=== PATIENT | female | born 1975 | race Caucasian/White ===

== ENCOUNTER 2016-10-19 14:16 | Emergency (ER) | payer OTHER ==
[~2016-10-19] VITALS: Ht 172.7 cm; Wt 72.6 kg
[~2016-10-19 14:16] MED LIST: HYDR-971 PO; LEVO500T8 PO; METR500T PO; ONDA4TAB10 PO; ONDA4TAB10 SL; OXYC5CAP3 PO
[2016-10-19 14:24] VITALS: BP 153/94
[2016-10-19] MEDS ORDERED: HYDR-971 PO (14:30)
[2016-10-19] MEDS ORDERED: DEXAMETHASONE SOD PHOS 10 MG/ML VIAL IM ONE (15:00)
--- NOTE | 2016-10-19 16:07 | ED.ADGEN ---
Past History Past Medical History: No Pertinent History Past Surgical History: Appendectomy, Other Alcohol Use: Rarely Drug Use: None Adult General HPI HPI Patient is a 41-year-old female presents to the emergency department complaining of left neck pain. Patient is in the process of moving several households and reports that she started developing or neck pain over the last 2 days. She thinks she may have slept on it awkwardly. Patient has pain primarily with turning to the left. She denies any other specific trauma to the area. Denies any focal neuro findings or radiculopathy. Review of Systems Review of Systems Constitutional: Denies fever or chills [] Eyes: Denies change in visual acuity, redness, or eye pain [] HENT: Denies nasal congestion or sore throat [] Respiratory: Denies cough or shortness of breath [] Cardiovascular: No additional information not addressed in HPI [] GI: Denies abdominal pain, nausea, vomiting, bloody stools or diarrhea [] : Denies dysuria or hematuria [] Musculoskeletal: Denies back pain or joint pain [] Integument: Denies rash or skin lesions [] Neurologic: Denies headache, focal weakness or sensory changes [] Endocrine: Denies polyuria or polydipsia [] Current Medications Current Medications Current Medications Medications (Trade) Dose Ordered Sig/Anshul Start Time Stop Time Status Last Admin Dose Admin Dexamethasone Sodium Phosphate (Decadron) 10 mg 1X ONCE 10/19/16 15:00 10/19/16 15:00 DC 10/19/16 14:45 10 MG Allergies Allergies Allergies Coded Allergies Type Severity Reaction Last Updated Verified Sulfa (Sulfonamide Antibiotics) Allergy Intermediate hives 05/01/16 Yes ketorolac Allergy Intermediate throat swells 05/01/16 Yes Physical Exam Physical Exam Constitutional: Well developed, well nourished, no acute distress, non-toxic appearance. [] HENT: Normocephalic, atraumatic, bilateral external ears normal, oropharynx moist, no oral exudates, nose normal. [] Eyes: PERRLA, EOMI, conjunctiva normal, no discharge. [] Neck: Normal range of motion, left trapezius and sternocleidomastoid are both tender to palpation with palpable spasm, no stridor. [] Cardiovascular:Heart rate regular rhythm, no murmur [] Lungs & Thorax: Bilateral breath sounds clear to auscultation [] Abdomen: Bowel sounds normal, soft, no tenderness, no masses, no pulsatile masses. [] Skin: Warm, dry, no erythema, no rash. [] Extremities: No tenderness, no cyanosis, no clubbing, ROM intact, no edema. [] Neurologic: Alert and oriented X 3, normal motor function, normal sensory function, no focal deficits noted. [] Psychologic: Affect normal, judgement normal, mood normal. [] Current Patient Data Vital Signs Vital Signs Date Time Temp Pulse Resp B/P Pulse Ox O2 Delivery O2 Flow Rate FiO2 10/19/16 14:24 97.8 95 20 99 Room Air EKG EKG [] Radiology/Procedures Radiology/Procedures [] Course & Med Decision Making Course & Med Decision Making Pertinent Labs and Imaging studies reviewed. (See chart for details) Unfortunately, the patient's unable to take Toradol. We did give her dose of Decadron here in emergency department and discharge her with a prescription for naproxen. She will follow-up with her doctor as needed return emergency department sooner she develops new or worsening symptoms. [] Final Impression Final Impression Torticollis [] Problems: Dragon Disclaimer Dragon Disclaimer This electronic medical record was generated, in whole or in part, using a voice recognition dictation system. JUNAID VALLES MD Oct 19, 2016 16:07
== END 2016-10-19 14:46 | disposition home or self-care (01) ==
LOC: ER 14:16
DX: M43.6 Torticollis (principal); Z88.2 Allergy status to sulfonamides; Z88.8 Allergy status to other drugs, medicaments and biological substances; X58.XXXA Exposure to other specified factors, initial encounter; Y93.89 Activity, other specified; Y99.8 Other external cause status; Y92.89 Other specified places as the place of occurrence of the external cause
CPT/HCPCS: 96372; 99283; J1100

== ENCOUNTER 2016-11-17 20:22 | Emergency (ER) | payer OTHER ==
[~2016-11-17 20:22] MED LIST changes: +OXYC5CAP PO; -OXYC5CAP3 PO
[2016-11-17 20:40] VITALS: BP 148/89
--- NOTE | 2016-11-17 20:50 | PHYS DOC ---
Past History Past Medical History: No Pertinent History Additional Past Medical Histor: chronic right hip pain Past Surgical History: Appendectomy, Cholecystectomy, Hysterectomy, Other Additional Past Surgical Histo: Bowel resection, knee surgery-Right Smoking: Cigarettes Alcohol Use: Rarely Drug Use: None Adult General Chief Complaint Chief Complaint: COUGH HPI HPI Patient is a 41 year old female who presents with sneezing and congestion for at least 4 days. It started with sneezing and then sinus congestion. No fevers. She has a dry nonproductive cough. Her ears are full as well. Review of Systems Review of Systems Constitutional: Denies fever or chills Eyes: Denies change in visual acuity, redness, or eye pain. Lateral eye puffiness. HENT: nasal congestion noted or sore throat Respiratory: Nonproductive cough but no shortness of breath, wheezing Cardiovascular: No additional information not addressed in HPI . No chest pain GI: Denies abdominal pain, nausea, vomiting, bloody stools or diarrhea : Denies dysuria or hematuria Musculoskeletal: Chronic right hip and right knee pain. Integument: Denies rash or skin lesions Neurologic: Denies headache, focal weakness or sensory changes Endocrine: Denies polyuria or polydipsia Allergies Allergies Allergies Coded Allergies Type Severity Reaction Last Updated Verified Sulfa (Sulfonamide Antibiotics) Allergy Intermediate hives 05/01/16 Yes ketorolac Allergy Intermediate throat swells 05/01/16 Yes Physical Exam Physical Exam Constitutional: Well developed, well nourished, no acute distress, non-toxic appearance. HENT: Normocephalic, atraumatic, bilateral external ears normal, TMs are dull bilaterally. Oropharynx moist, no oral exudates, nose normal. Eyes: PERRLA, EOMI, conjunctiva normal bilateral, no discharge. Mild periorbital edema but no erythema. Neck: Normal range of motion, no tenderness, supple, no stridor. Cardiovascular:Heart rate regular rhythm, no murmur Lungs & Thorax: Bilateral breath sounds clear to auscultation, no wheezing Abdomen: Bowel sounds normal, soft, no tenderness, no masses, no pulsatile masses. Skin: Warm, dry, no erythema, no rash. Back: No tenderness, no CVA tenderness. [] Extremities: No tenderness, no cyanosis, no clubbing, ROM intact, no edema. Neurologic: Alert and oriented X 3, normal motor function, normal sensory function, no focal deficits noted. Gait normal Psychologic: Affect normal, judgement normal, mood normal. Current Patient Data Vital Signs Vital Signs Date Time Temp Pulse Resp B/P (MAP) Pulse Ox O2 Delivery O2 Flow Rate FiO2 11/17/16 20:40 98.8 104 20 96 Room Air Inital BP: 148/89, Course & Med Decision Making Course & Med Decision Making Patient's physical exam is consistent with a allergic rhinitis and sinusitis. Does not have any evidence of a bacterial infection. Do not believe antibiotics are necessary at this time. Did give her a IM Decadron which will also help her hip pain. Placed on a Medrol Dosepak and she is to take Claritin daily. Dragon Disclaimer Dragon Disclaimer This chart was dictated in whole or in part using Voice Recognition software in a busy, high-work load, and often noisy Emergency Department environment. It may contain unintended and wholly unrecognized errors or omissions. Departure Departure: Referrals: JAZMÍN RANDOLPH (PCP) Scripts Methylprednisolone (MEDROL) 4 Mg Tab.ds.pk 1 PKG PO UD, #1 PKG Prov: JAYY NORIEGA MD 11/17/16 JAYY NORIEGA MD November 17, 2016 20:50
[2016-11-17] MEDS ORDERED: METH4TAB2 PO (21:26)
[2016-11-17] MEDS ORDERED: DEXAMETHASONE SOD PHOS 10 MG/ML VIAL IM ONE (21:30)
== END 2016-11-17 21:50 | disposition home or self-care (01) ==
LOC: ER 20:27
DX: J30.9 Allergic rhinitis, unspecified (principal); J32.9 Chronic sinusitis, unspecified; G89.29 Other chronic pain; F17.210 Nicotine dependence, cigarettes, uncomplicated; Z88.2 Allergy status to sulfonamides; Z88.8 Allergy status to other drugs, medicaments and biological substances
CPT/HCPCS: 96372; 99283; J1100

== ENCOUNTER 2016-12-07 15:22 | Emergency (ER) | payer OTHER ==
[~2016-12-07] VITALS: Ht 172.7 cm; Wt 70.3 kg
[~2016-12-07 15:22] MED LIST changes: +METH4TAB2 PO
[2016-12-07 15:35] VITALS: BP 133/67
[2016-12-07] MEDS ORDERED: diazePAM 5 MG TABLET PO ONE (16:10)
--- NOTE | 2016-12-07 16:25 | RAD ---
Indication: Fall and right knee pain. Time of exam 1613 hours. Multiple views of the right knee demonstrate postop changes of total knee arthroplasty. The prosthetic elements appear to be in good position. No fracture or loosening is seen. No effusion is identified. Impression: No acute abnormality is detected.
[2016-12-07] MEDS ORDERED: CYCL-331 PO (16:57)
--- NOTE | 2016-12-07 19:47 | ED.ADGEN ---
Past History Past Medical History: No Pertinent History Additional Past Medical Histor: chronic right hip pain Past Surgical History: Appendectomy, Cholecystectomy, Hysterectomy, Knee Replacement Additional Past Surgical Histo: Bowel resection, knee surgery-Right Smoking: Cigarettes Alcohol Use: Occasionally Drug Use: None Adult General HPI HPI Patient is a 41-year-old woman, who presents to the emergency department with a complaint of right knee pain. Patient is status post a total knee arthroplasty several years ago. She states that when she was stepping out of the shower today , stepped onto an uneven surface, and fell forward striking her knee against the wall. She denies falling down to the ground, striking her head or any other locations of pain or injury. She states that she is supposed to use a cane with ambulation all times but she only does so intermittently. She states that she took ibuprofen prior to coming to the ED, but is experiencing pain primarily on the lateral aspect of her knee, is concerned she may have done damage to her hardware. Patient ambulating using cane upon arousing the emergency department. Review of Systems Review of Systems Constitutional: Denies fever or chills [] Eyes: Denies change in visual acuity, redness, or eye pain [] HENT: Denies nasal congestion or sore throat [] Respiratory: Denies cough or shortness of breath [] Cardiovascular: No additional information not addressed in HPI [] GI: Denies abdominal pain, nausea, vomiting, bloody stools or diarrhea [] : Denies dysuria or hematuria [] Musculoskeletal: Denies back pain, right knee pain. Integument: Denies rash or skin lesions [] Neurologic: Denies headache, focal weakness or sensory changes [] Endocrine: Denies polyuria or polydipsia [] Current Medications Current Medications Current Medications Medications (Trade) Dose Ordered Sig/Anshul Start Time Stop Time Status Last Admin Dose Admin Diazepam (Valium) 5 mg 1X ONCE 12/07/16 16:10 12/07/16 16:11 DC 12/07/16 16:15 5 MG Allergies Allergies Allergies Coded Allergies Type Severity Reaction Last Updated Verified Sulfa (Sulfonamide Antibiotics) Allergy Intermediate hives 05/01/16 Yes ketorolac Allergy Intermediate throat swells 05/01/16 Yes Physical Exam Physical Exam Constitutional: Well developed, well nourished, no acute distress, non-toxic appearance. [] HENT: Normocephalic, atraumatic, bilateral external ears normal, oropharynx moist, no oral exudates, nose normal. [] Eyes: PERRLA, EOMI, conjunctiva normal, no discharge. [] Neck: Normal range of motion, no tenderness, supple, no stridor. [] Cardiovascular:Heart rate regular rhythm, no murmur , S1, S2, no rubs or gallops. [] Lungs & Thorax: Bilateral breath sounds clear to auscultation, no wheezing, rhonchi, rales. No chest wall crepitus or tenderness. [] Abdomen: Bowel sounds normal, soft, no rebound, rigidity, no guarding, no tenderness, no masses, no pulsatile masses. [] Skin: Warm, dry, no erythema, no rash. [] Back: No tenderness, no CVA tenderness. [] Extremities: Patient with well-healed surgical incision noted over the right knee, complaining of tenderness the patient in the lateral aspect of the knee, but no bony point tenderness or crepitus identified, no effusions, no external signs of trauma, no tenderness in the patella fossa., no cyanosis, no clubbing, ROM intact, no edema. [] Neurologic: Alert and oriented X 3, normal motor function, normal sensory function, no focal deficits noted. [] Psychologic: Affect normal, judgement normal, mood normal. [] Current Patient Data Vital Signs Vital Signs Date Time Temp Pulse Resp B/P (MAP) Pulse Ox O2 Delivery O2 Flow Rate FiO2 12/07/16 15:35 98.3 125 16 97 Room Air EKG EKG Not indicated. [] Radiology/Procedures Radiology/Procedures [][address] [address] IMAGING REPORT Signed PATIENT: ALIYAH PEDRAZA ACCOUNT: [id number] : 1975 LOCATION: ER AGE: 41 SEX: F EXAM STATUS: REG ER ORD. PHYSICIAN: SHELBY MARIN DO REASON: fall/pain PROCEDURE: KNEE RIGHT 4V Indication: Fall and right knee pain. Time of exam 1613 hours. Multiple views of the right knee demonstrate postop changes of total knee arthroplasty. The prosthetic elements appear to be in good position. No fracture or loosening is seen. No effusion is identified. Impression: No acute abnormality is detected. DICTATED AND SIGNED BY: ZACH BETANCOURT MD DATE: 12/07/16 1421 CC: JAZMÍN RANDOLPH; SHELBY MARIN DO ~ Course & Med Decision Making Course & Med Decision Making Pertinent Labs and Imaging studies reviewed. (See chart for details) Patient received Valium for muscle spasm, as patient has are eating anything for medication prior to come to the ED. X-ray of the knee was obtained, including sunrise views. Hardware is in place, with no evidence of loosening or acute injury. No effusion identified. I did discuss these findings with patient , who states that she is still experiencing some pain and soreness in the lateral aspect of her knee. However she is ambulating with her pain without difficulty. Discussed continuing to use [id number] medications and Flexeril for discomfort, and following up with orthopedics for additional evaluation if symptoms persist over the next several days. We also discussed concerning symptoms that would prompt return to the emergency department. Patient voiced understanding and agreement with plan as stated. Discharged home with prescriptions, instructions, precautions and plan as stated. Final Impression Final Impression [] Problems: Dragon Disclaimer Dragon Disclaimer This electronic medical record was generated, in whole or in part, using a voice recognition dictation system. Departure: Impression: Primary Impression: Right knee pain Disposition: 01 HOME, SELF-CARE Condition: IMPROVED Scripts Cyclobenzaprine Hcl (CYCLOBENZAPRINE HCL) 10 Mg Tablet 10 MG PO PRN TID Y for MUSCLE PAIN, #12 TAB Prov: SHELBY MARIN DO 12/07/16 SHELBY MARIN DO Dec 07, 2016 19:47
== END 2016-12-07 17:05 | disposition home or self-care (01) ==
LOC: ER 15:22
DX: M25.561 Pain in right knee (principal); G89.29 Other chronic pain; F17.210 Nicotine dependence, cigarettes, uncomplicated; Z96.651 Presence of right artificial knee joint; Z88.2 Allergy status to sulfonamides; Z88.8 Allergy status to other drugs, medicaments and biological substances; W18.09XA Striking against other object with subsequent fall, initial encounter; Y93.89 Activity, other specified; Y99.8 Other external cause status; Y92.89 Other specified places as the place of occurrence of the external cause
CPT/HCPCS: 73564; 99284

== ENCOUNTER 2017-01-15 14:23 | Emergency (ER) | payer OTHER ==
[~2017-01-15] VITALS: Ht 172.7 cm; Wt 70.3 kg
[~2017-01-15 14:23] MED LIST changes: +CYCL-331 PO
[2017-01-15] MEDS ORDERED: DEXAMETHASONE 4 MG TABLET ONE (15:09)
[2017-01-15] MEDS ORDERED: DEXAMETHASONE 4 MG TABLET PO ONE (15:15)
[2017-01-15] MEDS ORDERED: oxyCODONE/APAP 5/325 1 TAB TABLET PO ONE (15:30)
[2017-01-15] MEDS ORDERED: DEXAMETHASONE SOD PHOS 10 MG/ML VIAL IV ONE (15:30)
--- NOTE | 2017-01-15 15:52 | PHYS DOC ---
Past History Past Medical History: Diverticulitis Additional Past Medical Histor: chronic right hip pain Past Surgical History: Appendectomy, Cholecystectomy, Hysterectomy, Knee Replacement, Other Additional Past Surgical Histo: Bowel resection, knee surgery-Right Smoking: Cigarettes Alcohol Use: Occasionally Drug Use: None Adult General Chief Complaint Chief Complaint: HIP PAIN HPI HPI Patient is a 41 year old female who presents with complaint of right hip and knee pain. Patient states that she has a history of chronic hip and knee pain after having knee surgery many years ago which caused a disturbance in her gait. Patient states that her surgeries were completed in the [facility]. The patient was recently stationed in the [facility] with her family and currently resides at [facility]. The patient states that she gets flareups of her pain after increased exertion and states that this is what led to her current flareup. Patient states that her pain is severe and causing significant difficulty with ambulation. The patient has taken Tylenol at home with no relief. Patient states that she has been treated with Lyrica by her primary doctor but states that this did not work for her symptoms. Patient rates her pain currently 6 out of 10. Patient states that the pain travels from her right hip down towards her right knee. Worsens with movement. Does not improve with rest. Review of Systems Review of Systems Constitutional: Denies fever or chills [] HENT: Denies nasal congestion or sore throat [] Musculoskeletal: Right hip and knee pain [] Integument: Denies rash or skin lesions [] Neurologic: Denies headache, focal weakness or sensory changes [] Current Medications Current Medications Current Medications Medications (Trade) Dose Ordered Sig/Anshul Start Time Stop Time Status Last Admin Dose Admin Dexamethasone (Decadron) 4 mg STK-MED ONCE 01/15/17 15:09 01/15/17 15:10 DC Dexamethasone Sodium Phosphate (Decadron) 16 mg 1X ONCE 01/15/17 15:30 01/15/17 15:30 DC Oxycodone/ Acetaminophen (Percocet 5/325) 2 tab 1X ONCE 01/15/17 15:30 01/15/17 15:31 DC 01/15/17 15:13 2 TAB Allergies Allergies Allergies Coded Allergies Type Severity Reaction Last Updated Verified Sulfa (Sulfonamide Antibiotics) Allergy Intermediate hives 05/01/16 Yes ketorolac Allergy Intermediate throat swells 05/01/16 Yes Physical Exam Physical Exam Constitutional: Alert, afebrile, appears in moderate discomfort. [] HENT: Normocephalic, atraumatic, bilateral external ears normal, oropharynx moist, no oral exudates, nose normal. [] Skin: Warm, dry, no erythema, no rash. [] Back: No tenderness, no CVA tenderness. [] Extremities: Tenderness palpation over right greater trochanter, pain with passive range of motion along lateral aspect of right thigh, pulses 2+ distal to site of pain. [] Neurologic: Alert and oriented X 3, normal motor function, normal sensory function, no focal deficits noted. [] Current Patient Data Vital Signs Vital Signs Date Time Temp Pulse Resp B/P (MAP) Pulse Ox O2 Delivery O2 Flow Rate FiO2 01/15/17 15:13 18 99 01/15/17 14:23 98.2 102 Room Air Lab Results None performed EKG EKG Not performed [] Radiology/Procedures Radiology/Procedures Not performed [] Course & Med Decision Making Course & Med Decision Making Pertinent Labs and Imaging studies reviewed. (See chart for details) Patient was given Percocet and Decadron in the emergency department. On reevaluation, patient's pain has improved this time. Patient has had previous visits and has had prescriptions written from the emergency department for controlled narcotic medication. I did explain to the patient that further narcotic medications would need to be written by a single provider who could continue to follow with her as outpatient. I did recommend and provide referral to patient to see Dr. Doug Dixon at the pain management clinic at [facility]. Advised patient to call and schedule an appointment in the next 1-2 weeks. Recommended follow-up in 2-3 days with patient's primary doctor for reevaluation and return to emergency department for any worsening symptoms. Patient voiced understanding and in agreement with treatment plan. Dragon Disclaimer Dragon Disclaimer This chart was dictated in whole or in part using Voice Recognition software in a busy, high-work load, and often noisy Emergency Department environment. It may contain unintended and wholly unrecognized errors or omissions. Departure Departure: Impression: Primary Impression: Chronic right hip pain Additional Impression: Right knee pain Disposition: 01 HOME, SELF-CARE Condition: IMPROVED Referrals: JAZMÍN RANDOLPH (PCP) Patient Instructions: Chronic Pain Additional Instructions: Call the office of Dr. Doug Dixon, paint laboratory technician, for follow-up in the next 5-7 days. His office phone number is in his office address is as follows: [id number], [place] [place] [address] Follow-up with your primary doctor in the next 2-3 days for reevaluation. Return to the emergency department for any worsening symptoms. Problem Qualifiers Additional Impression: Right knee pain Chronicity: chronic Qualified Codes: M25.561 - Pain in right knee; G89.29 - Other chronic pain BETSY CASH MD Jan 15, 2017 15:52
[2017-01-15 15:55] VITALS: BP 123/80
== END 2017-01-15 15:55 | disposition home or self-care (01) ==
LOC: ER 14:23
DX: G89.29 Other chronic pain (principal); M25.551 Pain in right hip; M25.561 Pain in right knee; F17.210 Nicotine dependence, cigarettes, uncomplicated; Z96.651 Presence of right artificial knee joint; Z88.2 Allergy status to sulfonamides; Z88.8 Allergy status to other drugs, medicaments and biological substances
CPT/HCPCS: 99283; J8540

== ENCOUNTER 2019-01-25 12:54 | Emergency (ER) | payer OTHER ==
[~2019-01-25] VITALS: Ht 172.7 cm; Wt 58.1 kg
[~2019-01-25 12:54] MED LIST changes: +HYDR-3165 PO; -HYDR-971 PO
--- NOTE | 2019-01-25 13:18 | PHYS DOC ---
Past History Past Medical History: Diverticulitis Additional Past Medical Histor: chronic right hip pain Past Surgical History: Appendectomy, Cholecystectomy, Hysterectomy, Knee Replacement Additional Past Surgical Histo: Bowel resection, knee surgery-Right Smoking: Cigarettes Additional Smoking Information: 07/07- ppd Alcohol Use: Occasionally Drug Use: None Adult General Chief Complaint Chief Complaint: FOOT INJURY PAIN HPI HPI Patient is a 43-year-old female presents complaining of left fourth toe pain. Patient was doing some moving of a car, her foot slipped off the parking brake and the brake pedal came up words injuring her toe. There was no crush mechanism injury. Increased pain with movement and ambulation. This happened yesterday. No relief with her narcotic pain medicine that she has for chronic pain condition and is under contract with [facility]. She also took ibuprofen without any significant improvement. Pain is mild when resting, moderate to severe when standing. She notes swelling to the area.[] Review of Systems Review of Systems Constitutional: Denies fever or chills [] Eyes: Denies change in visual acuity, redness, or eye pain [] HENT: Denies nasal congestion or sore throat [] Respiratory: Denies cough or shortness of breath [] Cardiovascular: No chest pain or palpitations[] GI: Denies abdominal pain, nausea, vomiting, bloody stools or diarrhea [] : Denies dysuria or hematuria [] Musculoskeletal: Denies back pain, see history of present illness[] Integument: Denies rash or skin lesions [] Neurologic: Denies headache, focal weakness or sensory changes [] Endocrine: Denies polyuria or polydipsia [] All other systems were reviewed and found to be within normal limits, except as documented in this note. Allergies Allergies Allergies Coded Allergies Type Severity Reaction Last Updated Verified Sulfa (Sulfonamide Antibiotics) Allergy Intermediate hives 01/25/19 Yes ketorolac Allergy Intermediate throat swells 01/25/19 Yes Physical Exam Physical Exam Constitutional: Well developed, well nourished, no acute distress, non-toxic appearance. [] HENT: Normocephalic, atraumatic, bilateral external ears normal, oropharynx moist, no oral exudates, nose normal. [] Eyes: PERRLA, EOMI, conjunctiva normal, no discharge. [] Neck: Normal range of motion, no tenderness, supple, no stridor. [] Cardiovascular:Heart rate regular rhythm, no murmur [] Lungs & Thorax: Bilateral breath sounds clear to auscultation [] Abdomen: Not examined. [] Skin: Warm, dry, no erythema, no rash. [] Back: No tenderness, no CVA tenderness. [] Extremities: Left foot: Tenderness at the metatarsal phalangeal joint of the fourth toe. Full active range of motion. No significant swelling is appreciated. No bruising. She is distal neurologically intact. Full active range of motion. Capillary refill less than 2 seconds. A joint above and below were evaluated and were normal. The other 3 extremities show: No tenderness, no cyanosis, no clubbing, ROM intact, no edema. [] Neurologic: Alert and oriented X 3, normal motor function, normal sensory function, no focal deficits noted. [] Psychologic: Affect normal, judgement normal, mood normal. [] Current Patient Data Vital Signs Vital Signs Date Time Temp Pulse Resp B/P (MAP) Pulse Ox O2 Delivery O2 Flow Rate FiO2 01/25/19 12:58 96.8 81 18 100 Room Air EKG EKG [] Radiology/Procedures Radiology/Procedures X-ray of the left fourth toe shows no evidence of a fracture, no dislocation, no periosteal elevation, no lytic lesions noted[] Course & Med Decision Making Course & Med Decision Making Pertinent Labs and Imaging studies reviewed. (See chart for details) ED course: Patient arrived, was placed in bed, and tolerated exam well. She was transported to and from radiology with any complications. She was given acetaminophen to assist with pain management. A postoperative shoe was placed for additional comfort after the return of the imaging studies. She was distally neurovascularly intact after the administration of the postoperative shoe. She was discharged in improved condition after discussing the findings. All questions were answered. [place]o decision making: There is no evidence of a fracture or dislocation. No evidence of neurologic or vascular compromise. Believe this to be more of a sprain strain mechanism. Pain management will be difficult given that this patient has long-standing narcotic use. We will try a different anti- inflammatory since ibuprofen was not helping.[] Dragon Disclaimer Dragon Disclaimer This electronic medical record was generated, in whole or in part, using a voice recognition dictation system. Departure Departure: Impression: Primary Impression: Foot sprain Disposition: 01 HOME, SELF-CARE Condition: IMPROVED Referrals: JAZMÍN RANDOLPH (PCP) Follow-up in 2 days Patient Instructions: Foot Sprain Additional Instructions: Follow-up with your regular doctor in 2 days. Wear the postoperative shoe when walking. Stop your ibuprofen. Take the new pain medication as prescribed. Continue your long-term pain medication. Apply warm compresses for 15 minutes at a time at least 4 times a day. Return to the ER if worsening pain or any other concerns. Scripts Meloxicam (MELOXICAM) 7.5 Mg Tablet 7.5 MG PO DAILY for PAIN, #20 TAB Prov: BONNIE MONSALVE DO 01/25/19 Problem Qualifiers Primary Impression: Foot sprain Encounter type: initial encounter Laterality: left Qualified Codes: S93.602A - Unspecified sprain of left foot, initial encounter BONNIE MONSALVE DO Jan 25, 2019 13:18
[2019-01-25] MEDS ORDERED: ACETAMINOPHEN 325 MG TABLET PO ONE (13:30)
[2019-01-25] MEDS ORDERED: MELO7.5T29 PO (13:50)
--- NOTE | 2019-01-25 13:56 | RAD ---
EXAM: AP view left foot, oblique and lateral views of the left toes DATE: 01/25/2019 1:14 PM INDICATION: Fourth toe pain at MTP joint COMPARISON: No Prior FINDINGS/ IMPRESSION: No evidence of acute fracture or dislocation. Joint spaces are preserved without significant degenerative/proliferative change. Mild forefoot soft tissue swelling. Electronically signed by: Dickson Michael MD (01/25/2019 1:53 PM) [facility]
[2019-01-25 14:01] VITALS: BP 106/54
== END 2019-01-25 14:03 | disposition home or self-care (01) ==
LOC: ER 12:54
DX: S93.602A Unspecified sprain of left foot, initial encounter (principal); G89.29 Other chronic pain; M25.551 Pain in right hip; Z96.651 Presence of right artificial knee joint; F17.210 Nicotine dependence, cigarettes, uncomplicated; Z88.2 Allergy status to sulfonamides; Z88.8 Allergy status to other drugs, medicaments and biological substances; W20.8XXA Other cause of strike by thrown, projected or falling object, initial encounter; Y93.89 Activity, other specified; Y92.89 Other specified places as the place of occurrence of the external cause; Y99.8 Other external cause status
CPT/HCPCS: 73660; 99284

== ENCOUNTER 2019-02-23 20:43 | Emergency (ER) | payer OTHER ==
[~2019-02-23] VITALS: Ht 172.7 cm; Wt 59.0 kg
[~2019-02-23 20:43] MED LIST changes: +MELO7.5T29 PO
[2019-02-23 20:50] VITALS: BP 119/74
--- NOTE | 2019-02-23 21:26 | PHYS DOC ---
Past History Past Medical History: Diverticulitis Additional Past Medical Histor: chronic right hip pain Past Surgical History: Appendectomy, Cholecystectomy, Hysterectomy, Knee Replacement Additional Past Surgical Histo: Bowel resection, knee surgery-Right Smoking: Cigarettes Alcohol Use: Occasionally Drug Use: None Adult General Chief Complaint Chief Complaint: TOE PROBLEM HPI HPI Patient is a 43 year old female who presents with complaint of right small toe pain. The patient states that she accidentally stubbed her toe against her shoe earlier today. States that she is having significant pain with any weightbearing. At rest is complaining of 5 out of 10 pain. States that she took ibuprofen shortly prior to arrival. Denies any other injuries. The patie nt is concerned she may have broken her toe and thus came to the emergency department to have this further evaluated. Review of Systems Review of Systems Constitutional: Denies fever or chills [] Musculoskeletal: Right small toe pain[] Integument: Denies rash or skin lesions [] Neurologic: Denies headache, focal weakness or sensory changes [] All other systems were reviewed and found to be within normal limits, except as documented in this note. Allergies Allergies Allergies Coded Allergies Type Severity Reaction Last Updated Verified Sulfa (Sulfonamide Antibiotics) Allergy Intermediate hives 01/25/19 Yes ketorolac Allergy Intermediate throat swells 01/25/19 Yes Physical Exam Physical Exam Constitutional: Well developed, well nourished, no acute distress, non-toxic appearance. [] Skin: Warm, dry, no erythema, no rash. [] Extremities: Right fifth toe appear swollen and ecchymotic, direct tenderness to palpation, range of motion and right small toe decreased secondary to pain. [] Neurologic: Alert and oriented X 3, normal motor function, normal sensory function, no focal deficits noted. [] Current Patient Data Vital Signs Vital Signs Date Time Temp Pulse Resp B/P (MAP) Pulse Ox O2 Delivery O2 Flow Rate FiO2 02/23/19 22:23 18 99 Room Air Lab Results Current Medications Medications (Trade) Dose Ordered Sig/Anshul Route PRN Reason Start Time Stop Time Status Last Admin Dose Admin Acetaminophen/ Hydrocodone Bitart (Lortab 5/325) 1 tab 1X ONCE PO 02/23/19 21:30 02/23/19 21:34 DC 02/23/19 22:23 EKG EKG Not performed[] Radiology/Procedures Radiology/Procedures [address] [address] IMAGING REPORT Signed PATIENT: ALIYAH PEDRAZA ACCOUNT: [id number] : 1975 LOCATION: ER AGE: 43 SEX: F EXAM STATUS: REG ER ORD. PHYSICIAN: BETSY CASH MD REASON: Stubbed right 5th toe today, injury with pain, swelling, bruising PROCEDURE: FOOT RIGHT 3V Exam: Right foot 3 views INDICATION: Stubbed right toe TECHNIQUE: Frontal, lateral and oblique views of the right foot Comparisons: None FINDINGS: Bone mineralization is normal. No acute or healed fractures. Soft tissues are unremarkable. There is osseous fusion of the fifth digit phalanxes. Joint spaces are otherwise well-maintained. IMPRESSION: No acute osseous abnormality. Electronically signed by: Chilo Mclean MD (02/23/2019 11:01 PM) [facility] DICTATED AND SIGNED BY: CHILO MCLEAN MD DATE: 02/23/192300 CC: JAZMÍN RANDOLPH; BETSY CASH MD ~ [] Course & Med Decision Making Course & Med Decision Making Pertinent Labs and Imaging studies reviewed. (See chart for details) X-rays negative for fracture. On my review of the x-rays, I did note concern to patient regarding the interphalangeal joint of the fifth toe. I'm concerned that the patient may have suffered a joint injury to this toe despite lack of evidence of fracture as I do see an increase in joint space of the proximal joint. The affected toe was otilia taped to the fourth digit on the right foot and patient was provided crutches to help assist with ambulation. Recommended follow-up with primary doctor in the next 2 days and eventual need for follow-up with a guide cruise within the next week for reevaluation. Prescribed [place] as needed for pain. Advised return to emergency department for any worsening symptoms. Patient was understanding and in agreement with treatment plan.[] Dragon Disclaimer Dragon Disclaimer This electronic medical record was generated, in whole or in part, using a voice recognition dictation system. Departure Departure: Impression: Primary Impression: Injury of right toe Disposition: HOME, SELF-CARE Condition: STABLE Referrals: JAZMÍN RANDOLPH (PCP) Patient Instructions: Otilia Taping of Toes Additional Instructions: X-ray imaging of your right small toe today shows concern for an injury at the distal interphalangeal joint. It is recommended that this be evaluated by a guide cruise within the next 5-7 days. It is recommended that you do not place any weight on this toe until this has been evaluated. Keep your toe otilia taped as was performed today. Return to the emergency department for any worsening symptoms. Scripts Hydrocodone Bit/Acetaminophen (HYDROCODONE-APAP 5-325 ) 1 Each Tablet 1 TAB PO Q4-6HRS PRN for PAIN, #20 TAB 0 Refills Prov: BETSY CASH MD 02/23/19 Problem Qualifiers Primary Impression: Injury of right toe Encounter type: initial encounter Qualified Codes: S99.921A - Unspecified injury of right foot, initial encounter BETSY CASH MD Feb 23, 2019 21:26
[2019-02-23] MEDS ORDERED: HYDROcodone/APAP 5/325MG 1 TAB TABLET PO ONE (21:30)
[2019-02-23] MEDS ORDERED: HYDR-2155 PO (22:12)
--- NOTE | 2019-02-23 23:04 | RAD ---
Exam: Right foot 3 views INDICATION: Stubbed right toe TECHNIQUE: Frontal, lateral and oblique views of the right foot Comparisons: None FINDINGS: Bone mineralization is normal. No acute or healed fractures. Soft tissues are unremarkable. There is osseous fusion of the fifth digit phalanxes. Joint spaces are otherwise well-maintained. IMPRESSION: No acute osseous abnormality. Electronically signed by: Chilo Medina MD (02/23/2019 11:01 PM) [facility]
== END 2019-02-23 22:29 | disposition home or self-care (01) ==
LOC: ER 20:43
DX: S99.921A Unspecified injury of right foot, initial encounter (principal); G89.29 Other chronic pain; M25.551 Pain in right hip; F17.210 Nicotine dependence, cigarettes, uncomplicated; Z96.651 Presence of right artificial knee joint; Z88.2 Allergy status to sulfonamides; Z88.8 Allergy status to other drugs, medicaments and biological substances; W22.8XXA Striking against or struck by other objects, initial encounter; Y93.89 Activity, other specified; Y92.89 Other specified places as the place of occurrence of the external cause; Y99.8 Other external cause status
CPT/HCPCS: 73630; 99284

== ENCOUNTER 2019-11-25 17:56 | Emergency (ER) | payer OTHER ==
[~2019-11-25] VITALS: Ht 172.7 cm; Wt 58.1 kg
[~2019-11-25 17:56] MED LIST changes: +HYDR-2155 PO
[2019-11-25 18:10] VITALS: BP 152/101
--- NOTE | 2019-11-25 18:10 | PHYS DOC ---
Past History Past Medical History: Diverticulitis Additional Past Medical Histor: chronic right hip pain Past Surgical History: Appendectomy, Cholecystectomy, Hysterectomy, Knee Replacement Additional Past Surgical Histo: Bowel resection, knee surgery-Right Smoking: Cigarettes Alcohol Use: Occasionally Drug Use: None General Adult EDM: Chief Complaint: RECTAL BLEED HPI: HPI: "...I think I got a rectal prolapse..." .." I saw red blood when I wiped..." Patient is a 44 year old female who presents with above hx withcomplaints of red blood whe she wipes and concern of rectal prolapse. Patient has had previous history of GI disorders including diverticulitis and partial colon ectomy. Has had a hysterectomy. Patient has had appendectomy cholecystectomy patient's had normal colonoscope in 2001. Patient has a picture of her prolapsed rectum however currently now the rectum is not prolapsed. Has had previous episodes of constipation as well as diarrhea. Patient has currently burning in the rectal area. On exam there was no prolapse but did have a few hemorrhoids. No gross blood on rectal exam. Patient declined labs at this time. Patient will elect to be treated conservative will start on Anusol hydrocortisone suppositories and dibucaine. Patient to follow-up with Martha. Patient return if any concerns. Patient advised if becomes persistent problem she will need to have surgical review. Patient was seen here on 04/17/2016 for episode of colitis and received a consult with Dr. Fernandez at that time. Patient does smoke. Patient does not engage in rectal sex. Review of Systems: Review of Systems: Constitutional: Denies fever or chills Eyes: Denies change in visual acuity HENT: Denies nasal congestion or sore throat Respiratory: Denies cough or shortness of breath Cardiovascular: Denies chest pain or edema GI: Denies abdominal pain, nausea, vomiting, bloody stools or diarrhea. History of bright red blood and rectal prolapse per patient : Denies dysuria Musculoskeletal: Denies back pain or joint pain Integument: Denies rash Neurologic: Denies headache, focal weakness or sensory changes Endocrine: Denies polyuria or polydipsia Lymphatic: Denies swollen glands Psychiatric: Denies depression or anxiety Heart Score: Risk Factors: Risk Factors: DM, Current or recent (<one month) smoker, HTN, HLP, family history of CAD, obesity. Risk Scores: Score 0 - 3: 2.5% MACE over next 6 weeks - Discharge Home Score 4 - 6: 20.3% MACE over next 6 weeks - Admit for Clinical Observation Score 7 - 10: 72.7% MACE over next 6 weeks - Early Invasive Strategies Family History: Family History: Non-contributory to presentation tonight Current Medications: Current Meds: See nursing for home meds Allergies: Allergies: Allergies Coded Allergies Type Severity Reaction Last Updated Verified Sulfa (Sulfonamide Antibiotics) Allergy Intermediate hives 01/25/19 Yes ketorolac Allergy Intermediate throat swells 01/25/19 Yes Physical Exam: PE: Constitutional: Mild distress, non-toxic appearance. [] HENT: Normocephalic, atraumatic, bilateral external ears normal, oropharynx moist, no oral exudates, nose normal. [] Eyes: PERRLA, EOMI, conjunctiva normal, no discharge. [Glasses] Neck: Normal range of motion, no tenderness, supple, no stridor. [] Cardiovascular:Heart rate regular rhythm, no murmur [] Lungs & Thorax: Bilateral breath sounds are apex with scattered wheezes on auscultation [] Abdomen: Bowel sounds normal, soft, no tenderness, no masses, no pulsatile masses. Multiple surgery scars. Rectal exam no gross blood. Did have a small hemorrhoid. Rectal was not prolapsed at this time. No focal areas or rebound Skin: Warm, dry, no erythema, no rash. [] Back: No tenderness, no CVA tenderness. [] Extremities: No tenderness, no cyanosis, no clubbing, ROM intact, no edema. [No psoas sign. Neurologic: Alert and oriented X 3, normal motor function, normal sensory function, no focal deficits noted. [] Psychologic: Affect anxious, judgement normal, mood normal. [] EKG: EKG: [] Radiology/Procedures: Radiology/Procedures: Patient declined x-rays at this time [] Course & Med Decision Making: Course & Med Decision Making Pertinent Labs and Imaging studies reviewed. (See chart for details) Attempt to maintain a consistent stooling regimen avoid constipation and diarrhea. Patient apply Anusol HC suppositories up to 4 times a day as needed. Used Nupercaine ointment as needed up to 4 times a day. If develops rectal prolapse that does not return to normal anatomic position must have follow-up with surgery. Follow-up primary care. Currently patient refusing labs for evaluation of anemia. Patient return if any concerns. Impression: 1. Rectal prolapse by photograph-no current rectal prolapse 2. Hemorrhoids 3 . History of IBS 4. History of diverticulitis and colitis 5. Tobacco use [] Dragon Disclaimer: Dragon Disclaimer: This electronic medical record was generated, in whole or in part, using a voice recognition dictation system. Departure Departure: Disposition: HOME/RESIDENCE PRIOR TO ADM Condition: STABLE Referrals: JAZMÍN RANDOLPH (PCP) Scripts Dibucaine (DIBUCAINE) 28 Gm Oint...g. 1 THONG RC QIDPRN PRN for PAIN for 30 Days, #30 GM 0 Refills Prov: KATELYN HIGGINS MD 11/25/19 Hydrocortisone Acetate (ANUSOL-HC) 25 Mg Supp.rect 25 MG RC QIDPRN for hemorrhoids and prolapse, #30 SUPP.RECT Prov: KATELYN HIGGINS MD 11/25/19 Dragon Disclaimer This chart was dictated in whole or in part using Voice Recognition software in a busy, high-work load, and often noisy Emergency Department environment. It may contain unintended and wholly unrecognized errors or omissions. KATELYN HIGGINS MD November 25, 2019 18:10
[2019-11-25] MEDS ORDERED: IV RINGERS SOLUTION,LACTATED 1,000 ML IV SCH (18:30)
[2019-11-25] MEDS ORDERED: HYDR25SU18 RC (19:13)
[2019-11-25] MEDS ORDERED: DIBU28OI RC (19:13)
== END 2019-11-25 19:25 | disposition home or self-care (01) ==
LOC: ER 17:56
DX: K64.9 Unspecified hemorrhoids (principal); K52.89 Other specified noninfective gastroenteritis and colitis; G89.29 Other chronic pain; F17.210 Nicotine dependence, cigarettes, uncomplicated; Z90.89 Acquired absence of other organs; Z90.49 Acquired absence of other specified parts of digestive tract; Z90.710 Acquired absence of both cervix and uterus; Z88.2 Allergy status to sulfonamides; Z88.8 Allergy status to other drugs, medicaments and biological substances
CPT/HCPCS: 99282